=== PATIENT | female | born 1985 | race Caucasian/White ===

== ENCOUNTER 2019-10-14 01:55 | Outpatient (CLI) | payer BC, SELFPAY ==
[2019-10-14 18:09] LABS: SARS-CoV-2 RNA PCR Negative
== END 2019-10-14 01:56 | disposition home or self-care (01) ==
LOC: ANHCOVIDDT 01:55
PROVIDERS: Anesthesiology; PCP Family Medicine; Visit Provider Surgery
DX: Z01.812 Encounter for preprocedural laboratory examination (principal); Z11.59 Encounter for screening for other viral diseases
CPT/HCPCS: 87635; C9803; U0003

== ENCOUNTER 2019-10-17 02:51 | Day surgery (SDC) | payer BC, SELFPAY ==
[2019-06-09 13:16] VITALS: BMI 27.4
[2019-10-03 10:52] VITALS: BMI 28.3
[2019-10-17] VITALS (7 sets, daily range): BP systolic 98–124; BP diastolic 41–79; PULSE 62–85; RESP 15–21; TEMP 36.6–36.8; O2SAT 96–100
--- NOTE | 2019-10-17 08:48 | PM.HPGS ---
History of Present Illness History of Present Illness Consent: Risks, benefits, and alternatives and examination under anesthesia with excision of anal papilloma and external hemorrhoid, possible excision of internal hemorrhoids have been discussed and questions answered. Patient agrees to proceed with procedure. Chief complaint: External Hemorrhoid Anal Papilloma Narrative: Andreina Almodovar is a 34 year old white female that presented to the office early this year for an evaluation of hemorrhoids. Patient reports that she has had hemorrhoids for about the last 4 years. She reports that the hemorrhoids come and go. She reports when she has a flare up, the hemorrhoids usually last a week or so. She reports that her most recent flare up started about 2 weeks ago and ended a week ago so it lasted for about about a week. She reports that she is not right now having pain or discomfort. She reports she does have occassional itching. She reports she hardly ever has bleeding if any bleeding at all. She reports that the hemorrhoids comes out after BMs. She reports that she uses preparation H to help with the discomfort and itching. Patient reports that she has also been doing SITZ baths. She denies a high fiber diet. She reports she currently does not any hemorrhoid flare ups today, however reports that with each flare up the pain and discomfort is becoming worse. Patient denies pervious colonoscopy. Review of Systems Constitutional: Constitutional: Reports no additional constitutional complaints, Reports fatigue and Denies malaise Eyes: Eyes: Denies change in vision and Denies loss of vision ENT: Reports Normal hearing present, Denies change in voice, Denies dizziness, Denies hoarseness and Denies sore throat Cardiovascular: Cardiovascular: Denies chest pain, Denies leg edema and Denies dyspnea Respiratory: Respiratory: Denies cough, Denies dyspnea and Denies wheezing Gastrointestinal: Gastrointestinal: Denies hematochezia, Denies change in bowel habits, Denies constipation, Denies heartburn and Denies vomiting Comments: No recent flares of hemorrhoids. Genitourinary: Genitourinary: Denies urinary frequency and Denies urinary incontinence Neurologic: Reports Normal hearing present, Denies confusion, Denies dizziness, Denies loss of vision, Denies memory loss and Denies seizure-like activity Psychiatric: Psychiatric: Denies confusion, Denies depression and Denies memory loss Endocrine: Endocrine: Denies cold intolerance and Reports fatigue Hematologic/Lymphatic: Hematologic/Lymphatic: Denies easy bleeding and Denies easy bruising Allergic/Immunologic: Allergic/Immunologic: Denies wheezing PMFSH Past Medical History Medical History (Updated 10/17/19 @ 09:23 by Walter Martinez MD) Depression GERD (gastroesophageal reflux disease) Hypertrophied anal papilla (~04/2019) Surgical History Surgical History H/O abdominoplasty H/O breast augmentation History of prior ablation treatment ureter Social History Social History Smoking packs per day: 1 Smoking cigarettes per day: 20.0 Years smoked: 7 Smoking pack-years: 7.00 Smoking status: Never smoker Tobacco type: cigarettes Alcohol intake: current Substance use type: does not use Gender identity (if verbalized by the patient): Female Spiritual care concerns: No Meds Home Medications and Allergies Home Medications Medication Instructions Recorded Confirmed Type epinephrine [EpiPen] 0.3 mg IM ONCE PRN 06/09/19 10/17/19 History bupropion HCl 300 mg 24 hr tablet, 300 mg PO QAM #90 tablet 09/18/19 10/17/19 Rx extended release cetirizine [Zyrtec] 10 mg PO DAILY 10/03/19 10/17/19 History lisdexamfetamine 40 mg capsule 40 mg PO DAILY #30 cap 10/17/19 10/17/19 Rx Allergies Allergy/AdvReac Type Severity Reaction Status Date / Time NSAIDS (Non-Steroidal
[2019-10-17] MEDS: ACETAMINOPHEN 500 MG TABLET 1000 MG PO (10:50)
[2019-10-17] MEDS: LACTATED RINGERS 1,000 ML 30 ML IV CONT (10:50)
--- NOTE | 2019-10-17 11:01 | WPDANESEPPF ---
Anes - Initial Pre Proc Eval Procedure: Operation Date: 10/17/19 12:15 Proposed Procedures p Rectal Exam Under Anesthesia, Excision External Hemorrhoid and Anal Papilloma - Walter Martinez MD Date/Time: 10/17/19 11:01 Surgeon: Walter Martinez MD Pre Op Diagnosis: External Hemorrhoid Anal Papilloma Patient Data Age: 34 Gender: F Height: 5 ft 4 in Weight: 77.1 kg Last Vital Signs Temp 98.3 F 10/17/19 10:26 Pulse 75 10/17/19 10:26 Resp 18 10/17/19 10:26 BP 124/79 10/17/19 10:26 Pulse Ox 100 10/17/19 10:26 Allergies Allergy/AdvReac Type Severity Reaction Status Date / Time NSAIDS (Non-Steroidal Allergy RISK FOR Verified 10/17/19 10:33 Anti-Inflamma ANAPHALAXIS D/T MASTOCYTOSIS Home Medications Medication Instructions Recorded Confirmed Type epinephrine [EpiPen] 0.3 mg IM ONCE PRN 06/09/19 10/17/19 History bupropion HCl 300 mg 24 hr tablet, 300 mg PO QAM #90 tablet 09/18/19 10/17/19 Rx extended release cetirizine [Zyrtec] 10 mg PO DAILY 10/03/19 10/17/19 History lisdexamfetamine 40 mg capsule 40 mg PO DAILY #30 cap 10/17/19 10/17/19 Rx Patient hx anesthesia problems: none Family hx anesthesia problems: none PMFSH Past Medical History Medical History (Updated 10/17/19 @ 09:23 by Walter Martinez MD) Depression GERD (gastroesophageal reflux disease) Hypertrophied anal papilla (~04/2019) Surgical History Surgical History H/O abdominoplasty H/O breast augmentation History of prior ablation treatment ureter Social History Social History Smoking packs per day: 1 Smoking cigarettes per day: 20.0 Years smoked: 7 Smoking pack-years: 7.00 Smoking status: Never smoker Tobacco type: cigarettes Alcohol intake: current Substance use type: does not use Gender identity (if verbalized by the patient): Female Spiritual care concerns: No Anes - Eval Final PreProcedure Day of Procedure 10/17/19 11:01 Patient weight: overweight Heart: regular rate and rhythm Lungs: clear to auscultation Airway: Mallampati scale class II Neurological: alert and oriented Last oral intake: >/= 8 hours ASA classification: II Emergent: no Anesthetic plan: proceed Anesthesia type and monitoring: general ETT and standard monitoring Informed Consent: The patient's anesthetic plan and its attendant risks and benefits were discussed with the patient/family/POA. Questions were solicited and answers provided to the satisfaction of the patient/family/POA.
--- NOTE | 2019-10-17 11:20 | WPDANESEFPP ---
Anes - Eval Final PreProcedure Day of Procedure 10/17/19 11:20 Patient weight: overweight Heart: regular rate and rhythm Lungs: clear to auscultation Airway: Mallampati scale class II Neurological: alert and oriented Last oral intake: >/= 8 hours ASA classification: II Emergent: no Anesthetic plan: proceed Anesthesia type and monitoring: general LMA and standard monitoring Informed Consent: The patient's anesthetic plan and its attendant risks and benefits were discussed with the patient/family/POA. Questions were solicited and answers provided to the satisfaction of the patient/family/POA.
[2019-10-17] MEDS: SCOPOLAMINE 1.5 MG PATCH TRANSDERM (11:22)
[2019-10-17] MEDS: ceFAZolin 2 GM/D5W 50 ML 2 GM/50 ML BAG IVPB (12:15)
[2019-10-17] MEDS: BUPIVACAINE/EPINEPHRINE 0.5% 30 ML VIAL INFILTRATE (12:38)
--- NOTE | 2019-10-17 13:12 | SUR.OPER ---
15 Ml EBL Gelfoam and urojet lidocaine packing to site
[2019-10-17] MEDS: LIDOCAINE HCL 2% GEL UROJET 10 ML PKG MUCOUS MEM (13:17)
--- NOTE | 2019-10-17 13:26 | PM.PROC ---
Procedure Note - Detailed Date of procedure: 10/17/19 Pre-op diagnosis: External Hemorrhoid Anal Papilloma Post-op diagnosis: same Procedure performed: Anorectal examination under anesthesia. Excision of hypertrophic papilloma and external hemorrhoids x2 Description of procedure: Patient was seen initially in the outpatient pre-op area and out patient history and physical completed. She confirmed that she was still having some irritation of the external hemorrhoids periodically. Patient was taken to the operating room and placed in the lithotomy position after induction of adequate LMA general anesthesia. We then carefully performed an examination under anesthesia. This revealed using a rectal retractors no left lateral or right anterior hemorrhoids. In the left posterior position there was a 1 cm hypertrophic papilloma and slightly more to the left a only 3 mm papilloma and just external this a fairly large external hemorrhoid that was somewhat swollen. In the right posterior position there was a smaller external hemorrhoid and then a small papilloma just inside of it. I decided to excise both of these areas. First excision was performed by carefully instilling local anesthetic using 2% xylocaine proceed me 0.5% Marcaine with epinephrine underneath the hemorrhoidal tissue and anal skin. Fifteen blade knife was used to excise the hypertrophic papilloma and the external hemorrhoid. The small papilloma was simply amputated. A running 3 0 Vicryl suture was used to reapproximate the anal tissues and skin in a anal plasty type manner. Following this I did a similar excision in the right posterior position with a smaller papilloma and external hemorrhoid being excised. Two separate tissue specimens were sent and labeled with the above tissue. The 2nd area was also closed with a running so a suture of 3 0 Vicryl in anal plasty fashion. Two extra [id number] sutures had to be used on the right posterior position to achieve hemostasis. After that hemostasis was well achieved. Following this a piece of 6 x 4 cm Gelfoam was rolled with lidocaine gel on it and placed in the anal opening. Patient tolerated the procedure well Estimated blood loss 15 cc Patient taken recovery room good condition. Implants: none Anesthesia: GLMA Surgeon: Walter Martinez MD Manufacturing Sr Engineer: [employer] Rubio, [place] 1st. assist Estimated blood loss (mL): 15 Drains: No Packing: Yes ( A rolled piece of all Gelfoam with lidocaine gel on it placed in the anal) Pathology: yes ( hemorrhoids and hypertrophic papillae sent for examination) Complications: No immediate complications Condition: stable Disposition: PACU Findings: 1. Left hypertrophic papilla 1 cm in size just inside a enlarged external hemorrhoid 2. Small hypertrophic papillae with a posterior right external hemorrhoid. 3. No significant internal hemorrhoids seen.
== END 2019-10-17 14:51 | disposition home or self-care (01) ==
PROVIDERS: PCP Family Medicine; Visit Provider Surgery
PROC: (CPT 46250; principal; 2019-10-17 12:15)
DX: K62.89 Other specified diseases of anus and rectum (principal); K62.0 Anal polyp; K64.4 Residual hemorrhoidal skin tags; K21.9 Gastro-esophageal reflux disease without esophagitis; F32.9 Major depressive disorder, single episode, unspecified; F17.210 Nicotine dependence, cigarettes, uncomplicated
CPT/HCPCS: 46250; 88304; A9270; J0690; J2250; J2270; J7120